=== PATIENT | male | born 1995 | race African-American/Black ===

== ENCOUNTER 2018-04-06 13:45 | Emergency (ER) | payer SELFPAY ==
[2018-04-06] MEDS: DIPHTH,PERTUSS(ACELL),TET TOX 0.5 ML DISP.SYRIN. VAX IM (15:09)
== END 2018-04-06 15:13 | disposition home or self-care (01) ==
LOC: ER 13:45
DX: S90.31XA Contusion of right foot, initial encounter (principal); W20.8XXA Other cause of strike by thrown, projected or falling object, initial encounter; Y93.89 Activity, other specified; Y92.89 Other specified places as the place of occurrence of the external cause; Y99.8 Other external cause status
CPT/HCPCS: 73630; 90471; 90715; 99284

== ENCOUNTER 2021-10-02 12:21 | Emergency (ER) | payer BC ==
[~2021-10-02] VITALS: Ht 175.3 cm; Wt 64.5 kg
[~2021-10-02 12:21] MED LIST: BENZ100C PO
[2021-10-02 12:30] VITALS: BP 126/72
--- NOTE | 2021-10-02 12:41 | PHYS DOC ---
Past Medical History Past Medical History: No Pertinent History (KENDAL ANDRE APRN) Past Surgical History: No Surgical History (KENDAL ANDRE APRN) Smoking Status: Never Smoker Alcohol Use: None Drug Use: None (KENDAL ANDRE APRN) General Adult EDM: Chief Complaint: ABDOMINAL PAIN HPI: HPI: Patient is a 26-year-old male who presents today for lower abdominal hernia. Patient states that 1 year ago he was working at [employer] and was lifting something heavy there and he said that he felt funny in the lower abdomen and since that time he has had this "hernia "that he has been able to reduce on a regular basis. He says that he presents today because he now has insurance to have it repaired and he is wanting to know if we can give him a referral to a general surgeon for repair. Patient states that he has an appointment with Dr. Ricardo who he is establishing care with tomorrow at 2 PM and he was going to mention to him but his mother told him to come to the emergency department so that we can get him in faster to the general surgeon. Patient denies chest pain, shortness of air, diarrhea, constipation, fever, or any painful urination. (KENDAL ANDRE [employer]) Review of Systems: Review of Systems: Constitutional: Denies fever or chills. [] Eyes: Denies change in visual acuity. [] HENT: Denies nasal congestion or sore throat. [] Respiratory: Denies cough or shortness of breath. [] Cardiovascular: Denies chest pain or edema. [] GI: Hernia denies abdominal pain, nausea, vomiting, bloody stools or diarrhea. [] : Denies dysuria. [] Musculoskeletal: Denies back pain or joint pain. [] Integument: Denies rash. [] Neurologic: Denies headache, focal weakness or sensory changes. [] Endocrine: Denies polyuria or polydipsia. [] Lymphatic: Denies swollen glands. [] Psychiatric: Denies depression or anxiety. [] (KENDAL ANDRE APRN) Heart Score: C/O Chest Pain: N/A Risk Factors: Risk Factors: DM, Current or recent (<one month) smoker, HTN, HLP, family history of CAD, obesity. Risk Scores: Score 0 - 3: 2.5% MACE over next 6 weeks - Discharge Home Score 4 - 6: 20.3% MACE over next 6 weeks - Admit for Clinical Observation Score 7 - 10: 72.7% MACE over next 6 weeks - Early Invasive Strategies (KENDAL ANDRE APRN) Allergies: Allergies: Allergies Coded Allergies Type Severity Reaction Last Updated Verified No Known Drug Allergies 02/09/14 No (KENDAL ANDRE APRN) Physical Exam: PE: Constitutional: Well developed, well nourished, no acute distress, non-toxic appearance. [] HENT: Normocephalic, atraumatic, bilateral external ears normal, oropharynx moist, no oral exudates, nose normal. [] Eyes: PERRLA, EOMI, conjunctiva normal, no discharge. [] Neck: Normal range of motion, no tenderness, supple, no stridor. [] Cardiovascular:Heart rate regular rhythm, no murmur [] Lungs & Thorax: Bilateral breath sounds clear to auscultation [] Abdomen: Bowel sounds normal, soft, no tenderness, patient has a reducible hernia noted on the left inguinal area which was reduced without any complications, no pulsatile masses. [] Skin: Warm, dry, no erythema, no rash. [] Back: No tenderness, no CVA tenderness. [] Extremities: No tenderness, no cyanosis, no clubbing, ROM intact, no edema. [] Neurologic: Alert and oriented X 3, normal motor function, normal sensory function, no focal deficits noted. [] Psychologic: Affect normal, judgement normal, mood normal. [] (KENDAL ANDRE APRN) EKG: EKG: [] (KENDAL ANDRE APRN) Radiology/Procedures: Radiology/Procedures: [] (KENDAL ANDRE APRN) Course & Med Decision Making: Course & Med Decision Making Pertinent Labs and Imaging studies reviewed. (See chart for details) Patient has a reducible hernia, patient also has an appointment with his primary care physician tomorrow at 2 PM for establishment of primary care, I did encourage the patient to talk to his primary care physician about having refer ral to general surgery for repair of this hernia. Patient is nontoxic in appearance, afebrile, and is in no acute distress. Patient will be sent home for follow-up with his primary care physician as scheduled. (KENDAL ANDRE APRN) Dragon Disclaimer: Dragbrice Disclaimer: This electronic medical record was generated, in whole or in part, using a voice recognition dictation system. (KENDAL ANDRE APRN) Departure Departure Impression: Primary Impression: Hernia Disposition: HOME / SELF CARE / HOMELESS Condition: STABLE Referrals: NO PCP (PCP) JORDIN KEYES MD, WILLIAM R MD Patient Instructions: Hernia Additional Instructions: Keep follow-up appointment with Dr. Ricardo on October 03, 2021 at 2 PM. Return to the emergency department for increased abdominal pain, development of a fever, any bowel issues or urinary issues. Attending Signature Attending Signature I have reviewed the PA/AUDIT REVIEWER's note and plan of care. I was available for consultation as needed during the patient's visit in the emergency department. I agree with the clinical impression, plan, and disposition. (JACKSON LEMUS DO) KENDAL ANDRE APRN Oct 02, 2021 12:41 JACKSON LEMUS DO Oct 03, 2021 08:14
== END 2021-10-02 12:53 | disposition home or self-care (01) ==
LOC: ER 12:21
DX: K46.9 Unspecified abdominal hernia without obstruction or gangrene (principal)
CPT/HCPCS: 99284